=== PATIENT | male | born 1960 | race Caucasian/White ===

== ENCOUNTER 2016-12-11 21:34 | Inpatient (IN) ==
[2016-12-11] MEDS ORDERED: LEVOFLOXACIN INJ 750 MG in PREMIX 1 EACH IV STA (22:07)
[2016-12-11] MEDS ORDERED: ALBUTEROL/IPRATROPIUM 3 ML NEB RESP TX STA (22:07)
--- NOTE | 2016-12-11 22:12 | Emergency Department Note ---
Arrival - Arrival Chief Complaint: Non-Specific Stated Complaint: kidney stone ED Nursing Triage Note: pt transferred from [place] [facility] er with pneumonia, kidney stone, possible appendicitis. pt states he is in no pain at present d/t [place] [facility] giving pain med. Mode of Arrival: Stretcher Limitations: No Limitations Source: Patient Time Seen by Provider: 12/11/16 22:04 - History of Present Illness HPI Narrative: This 56-year-old white male presents on referral from [facility] for further evaluation of right renal stone disease, alleged pneumonia, and alleged appendicitis. Patient most significantly has had complaints of persistent cough and dyspnea on exertion for the last several days with specific complaints today of right flank pain radiating anteriorly with nausea and vomiting precipitating his initial visit to [facility]. Notable was evidence on noncontrast CT of abnormalities the appendix for which the patient was referred here for further evaluation. Currently the patient is comfortable without complaints of pain at the moment. Onset (ago): day(s) (Patient presents several days post onset of symptoms) Allergies/Adverse Reactions: Allergies Allergy/AdvReac Type Severity Reaction Status Date / Time Penicillins Allergy ANAPHYLAXIS Verified 12/11/16 22:05 Review of System - Review of System 12 point system: reviewed and no additional remarkable complaints except as stated - Review of System Constitutional: Present: as per HPI Respiratory: Present: as per HPI Genitourinary male: Present: as per HPI Medical,Surgical,& Family Hx - Medical History Respiratory: History of: Pneumonia Genitourinary: History of: Kidney Stones - Social History Smoking Status: Unknown if ever smoked Frequency of Alcohol Use: None Type of Drug Use: None Exam Physical Examination: GENERAL: Well developed, well nourished white male in no acute distress. HEENT: Normocephalic. No trauma. Moist mucous membranes. EOMI. PERRLA. ENT NML NECK: Supple. No adenopathy. CARDIAC: Regular. No murmurs. Heart rate 75 CHEST: Scattered expiratory moi. No respiratory distress. O2 sat 94% ABDOMEN: Soft. Right lower quadrant tenderness. Active bowel sounds. EXTREMITIES: No trauma. Normal ROM. No pedal edema. SKIN: No diaphoresis. No rash. NEURO: Alert. Neuro intact. No focal deficits. Vital Signs: Vital Signs Temperature 98.3 F 12/11/16 22:53 Pulse Rate 75 12/11/16 22:53 Respiratory Rate 18 12/11/16 22:53 Blood Pressure 146/86 12/11/16 22:53 O2 Sat by Pulse Oximetry 100 12/11/16 22:49 Course Course Narrative: I discussed the CT from [facility] with our radiologist who felt there was no evidence of an acute appendicitis. Likewise he obtained the official interpretation by the radiologist at [facility] who concurred with this opinion that there was no evidence of acute appendicitis. - Reevaluation(s) Reevaluation #1: Advised patient of admission for pneumonia and renal stone and the fact that he has no appendicitis. - Consultations Consultation #1: Discussed with hospitalist service who will admit for further evaluation treatment peer Results - Labs CBC & BMP: 12/11/16 22:17 12/11/16 22:17 Labs: Lab per [facility] white blood count 22,000, hematocrit 37, sodium 144, potassium 4.2, BUN 17, creatinine 1.0 I have noted the similar laboratory findings from our lab. - Diagnostic Findings Procedure: Chest x-ray: image reviewed by me, report reviewed by me (Per [facility] right middle lobe pneumonia), CT Abdomen and Pelvis: image reviewed by me, report reviewed by me (Per [facility] right renal stone/abnormal appearing appendix) Disposition Clinical Impression: Right middle lobe pneumonia, Right renal stone Case discussed with: patient, patient's family Disposition: Still a Patient Condition: Stable Time of Disposition: 23:16
[2016-12-11] MEDS ORDERED: LEVOFLOXACIN INJ 150 ML IV ONE (22:16)
[2016-12-11 22:57] LABS: Calcium 7.9 MG/DL (8.5-10.1); Osmolality,Calculated 282.3 MOS/KG (273-304); Potassium 4.1 MMOL/L (3.5-5.1)
--- NOTE | 2016-12-11 23:00 | XRay Report ---
History: Pneumonia Date: 12/11/2016 Study: Chest x-ray PA and lateral Comparison exam: No previous chest x-ray available The cardiac silhouette is upper normal in size. There is no obvious mediastinal mass. The pulmonary vasculature is not engorged. There is atelectatic parenchymal consolidation in the right middle lobe compatible with pneumonia. The lungs and pleural spaces are otherwise clear. There is mild thoracic spondylosis. Impression: Right middle lobe pneumonia PROCEDURE INTERPRETED AT [facility] Final Report Signed by: Dr. Katherine Soliz
[2016-12-11 23:02] LABS: Troponin I Only < 0.015 NG/ML (0.00-0.045)
[2016-12-11 23:04] LABS: Basophils % 0.2 % (0.0-0.8); Eosinophils # 0.2 10*3/uL (0.0-0.87); Eosinophils % 0.9 % (0.00-10.9); Hematocrit 34.8 VOL% (42.0-52.0); Hemoglobin 11.4 GM/DL (14.0-18.0); Immature Granulocytes % 0.8 %; Immature Granulocytes Absolute 0.15 #; Mean Corpuscular HGB Conc 32.8 GM/DL (32-36); Mean Corpuscular Hemoglobin 31 PG (27-34); Mean Platelet Volume 9.2 FL (9.6-12.0); Monocytes # 1.1 10*3/uL (0.11-0.8); Monocytes % 5.6 % (1.7-12.7); Neutrophils # 15.3 10*3/uL (1.4-7.4); Neutrophils % 77.5 % (38.7-73.9); Platelet Count 411 T/CUMM (130-400); Red Blood Count 3.74 MC/CUMM (3.8-5.5); Red Cell Distribution Width 13.1 % (9.3-17.3); White Blood Count 19.8 T/CUMM (4-12)
--- NOTE | 2016-12-11 23:27 | EKG Report ---
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
--- NOTE | 2016-12-11 23:59 | Hospitalist History & Physical ---
Assessment and Plan (1) Right middle lobe pneumonia Status: Acute Current Visit: Yes (2) Kidney stone Status: Acute Current Visit: Yes (3) Restless leg syndrome Status: Acute Current Visit: Yes (4) Tobacco abuse Status: Acute Assessment and plan: Patient will be admitted to our service he will be placed on IV antibiotics and schedule breathing treatments. Patient does have some evidence of a kidney stone over per CT scan. We will consult urology. Instructed the patient that the need to quit smoking. I am getting schedule him a nicotine patch. Reevaluate patient in the morning and adjust plans appropriate Current Visit: Yes History of Present Illness Chief complaint: Transfer from outside facility History of present illness: Mr. Aege is a 56 year old male with past medical history significant for restless leg syndrome who was received as a transfer from [place] emergency room. Patient developed right lower quadrant pain seem like it radiated to his right side this occurred a few days ago. The pain steadily increased. They went up to quit in hospital was given a Toradol shot. Patient had a CT scan displayed a 3 mm stone noted in the right UVJ with some moderate right sided hydronephrosis. He had a significant right middle lobe consolidation. Patient reports a recent upper respiratory infection productive cough denies fever. We accept the patient is transferred to the emergency room I was consulted to admit the patient through the emergency room Allergies Allergy/AdvReac Type Severity Reaction Status Date / Time Penicillins Allergy ANAPHYLAXIS Verified 12/11/16 22:05 Medical,Surgical,& Family Hx - Medical History Respiratory: History of: Pneumonia Genitourinary: History of: Kidney Stones - Surgical History Surgical History: noncontributory (none) - Family History Family History: Reports;: Family Heart Disease, Family Stroke - Social History Smoking Status: Current every day smoker Frequency of Alcohol Use: None Type of Drug Use: None 12 point system: reviewed and no additional remarkable complaints except as stated Exam - Constitutional Vitals: Period Temp Pulse Resp BP Sys/Kim Pulse Ox Last 24 Hr 98.3 F-98.3 F 63-75 12-18 146-146/86-86 94-100 General appearance: normal weight - Head Head exam: Present: normal inspection - Eye Eye exam: Present: EOMI Pupils: Present: GARY - ENT ENT exam: Present: normal exam - Neck Neck exam: Present: normal inspection - Respiratory Respiratory exam: Present: rhonchi (Appreciated in the basis) - Cardiovascular Cardiovascular exam: Present: regular rate and rhythm - GI/Abdominal GI/Abdominal exam: Present: normal bowel sounds - Extremities Exam Extremities exam: Present: normal inspection - Back Exam Back exam: Present: normal inspection - Neurological Exam Neurological exam: Present: alert - Psychiatric Psychiatric exam: Present: normal affect, normal mood Results - Labs CBC & BMP: 12/11/16 22:17 12/11/16 22:17
[2016-12-12] MEDS ORDERED: MORPHINE 2 MG/1 ML SYRINGE IV PRN (00:03)
[2016-12-12] MEDS ORDERED: ALBUTEROL 2.5 MG/3 ML NEB RESP TX PRN (00:03)
[2016-12-12] MEDS ORDERED: ONDANSETRON 4 MG/2 ML VIAL IV PRN (00:03)
[2016-12-12] MEDS: NICOTINE 21 MG/24 HR PATCH TRANSDERM SCH ×2 (02:08→09:16)
[2016-12-12] MEDS: ENOXAPARIN 40 MG/0.4 ML SYRINGE SUBCUT SCH (02:09)
[2016-12-12] MEDS: clonazePAM 0.5 MG TABLET PO SCH ×2 (02:10→21:38)
[2016-12-12] MEDS: ALBUTEROL/IPRATROPIUM 3 ML NEB RESP TX SCH ×4 (02:13→19:19)
[2016-12-12 07:37] LABS: Basophils % 0.2 % (0.0-0.8); Eosinophils # 0.1 10*3/uL (0.0-0.87); Eosinophils % 0.9 % (0.00-10.9); Hematocrit 32.5 VOL% (42.0-52.0); Hemoglobin 10.7 GM/DL (14.0-18.0); Immature Granulocytes % 0.6 %; Immature Granulocytes Absolute 0.09 #; Lymphocytes # 2.2 10*3/uL (1.4-4.0); Lymphocytes % 15.5 % (21.2-54.2); Mean Corpuscular HGB Conc 32.9 GM/DL (32-36); Mean Corpuscular Hemoglobin 31 PG (27-34); Mean Corpuscular Volume 92.6 FL (87-102); Mean Platelet Volume 9.4 FL (9.6-12.0); Monocytes # 0.9 10*3/uL (0.11-0.8); Monocytes % 6.2 % (1.7-12.7); Neutrophils # 10.6 10*3/uL (1.4-7.4); Neutrophils % 76.6 % (38.7-73.9); Platelet Count 377 T/CUMM (130-400); Red Blood Count 3.51 MC/CUMM (3.8-5.5); Red Cell Distribution Width 13.1 % (9.3-17.3); White Blood Count 13.9 T/CUMM (4-12)
[2016-12-12 08:05] LABS: Albumin 2.8 G/DL (3.4-5.0); Bilirubin,Total 0.5 MG/DL (0.2-1.0); Calcium 8.2 MG/DL (8.5-10.1); Osmolality,Calculated 283.1 MOS/KG (273-304); Potassium 3.8 MMOL/L (3.5-5.1); Total Protein 6.4 G/DL (6.4-8.3)
--- NOTE | 2016-12-12 09:15 | Hospitalist Progress Note ---
Assessment and Plan (1) Right middle lobe pneumonia Status: Acute Assessment and plan: I subtraction to the levofloxacin. Obtain sputum for Gram stain and culture. And is a smoker. This consultation should be followed very closely just on the fear that he may be malignant disease. Current Visit: Yes Qualifiers: Pneumonia type: due to unspecified organism Qualified Code(s): J18.1 - Lobar pneumonia, unspecified organism (2) Kidney stone Status: Acute Assessment and plan: Patient will need to seave the urine. If we collect the stone send it to the laboratory for chemistry analysis. Tells me in the past has been a calcium based stones. If his calcium phosphate then we know his hypercalcemia which he suspects because he drinks a lot of milk. Calcium oxalate may engendered GI diseases suspicion of chronic inflammatory bowel disease. Patient is on pain medications which seem to be optimal at this point. Current Visit: Yes (3) Restless leg syndrome Status: Acute Assessment and plan: Observe if it becomes too much of an issue put the patient on Requip. Current Visit: Yes (4) Tobacco abuse Status: Acute Current Visit: Yes Hospitalist: Subjective Interval history: Patient has been seen interviewed and examined and prepped and chart has been reviewed. Artis was transferred from [facility] with a right-sided moderate hydronephrosis complicating a kidney stone as well as right middle lobe pneumonia. Also been having a lot of right flank pain. His urinalysis was done at [facility] which I do not seem to find on the record. Will repeat a UA and urine culture here. He has yet to pass the stone. There is no gross hematuria. Regarding the pneumonia is yet to give me a sputum. He has received a dose of levofloxacin already. His description of the pneumonia seems to be more and more typical because there is no too much expectoration. He is a socked in consolidation. Chest x-ray review. I will be sending an appropriate laboratory work for this. We may need to add ceftriaxone to the levofloxacin. Exam - Constitutional Vitals: Period Temp Pulse Resp BP Sys/Kim Pulse Ox Last 24 Hr 97.5 F-98.6 F 74-92 16-17 130-161/68-94 94-99 General appearance: normal weight - Head Head exam: Present: normocephalic, atraumatic - Eye Eye exam: Present: EOMI, other (Anicteric sclera no conjunctival petechia) Pupils: Present: GARY - ENT ENT exam: Present: normal oropharynx - Neck Neck exam: Present: normal inspection - Respiratory Respiratory exam: Present: other (Right-sided bronchopulmonary noted no wheezing no rales rhonchi) - Cardiovascular Cardiovascular exam: Present: regular rate and rhythm - GI/Abdominal GI/Abdominal exam: Present: normal bowel sounds, soft - Extremities Exam Extremities exam: Present: full ROM - Back Exam Back exam: Present: normal inspection - Neurological Exam Neurological exam: Present: alert, oriented X3, CN II-XII intact - Psychiatric Psychiatric exam: Present: normal affect, normal mood - Skin Skin exam: Present: normal color, warm, dry Results - Labs CBC & BMP: 12/12/16 06:40 12/12/16 06:40 Lab Results: I have reviewed the past 24 hour labs
[2016-12-12] MEDS: GABAPENTIN 600 MG TABLET PO SCH ×3 (09:16→21:37)
[2016-12-12] MEDS: PANTOPRAZOLE 40 MG TABLET PO SCH (09:16)
[2016-12-12] MEDS: DEXTROSE 5% NACL 0.45% 1,000 ML IV SCH ×2 (09:25→21:35)
[2016-12-12] MEDS: LEVOFLOXACIN INJ 750 MG in PREMIX 1 EACH IV SCH (21:40)
[2016-12-12 21:44] LABS: Apearance,Urine CLEAR (Clear); Bilirubin,Urine Negative (Negative); Blood, Urine Large mg/dL (Negative); Glucose,Urine (UA) 50 mg/dL (Negative); Hyaline Casts,Urine 1 /LPF (0-3); Ketones,Urine Negative (Negative); Nitrite,Urine Negative (Negative); Protein,Urine Negative; RBC,Urine <1 /HPF (0-4); Urine Color Straw (Yellow); Urine Specific Gravity 1.004 (1.001-1.035); Urine Urobilinogen < 2.0 EU/DL (0.2-1.0); WBC,Urine <1 /HPF (0-6)
[2016-12-12] MEDS ORDERED: LEVOFLOXACIN INJ 750 MG in PREMIX 1 EACH IV SCH (22:00)
[2016-12-13] MEDS: ENOXAPARIN 40 MG/0.4 ML SYRINGE SUBCUT SCH (01:06)
[2016-12-13] MEDS: ALBUTEROL/IPRATROPIUM 3 ML NEB RESP TX SCH ×4 (01:54→19:10)
[2016-12-13] MEDS: NICOTINE 21 MG/24 HR PATCH TRANSDERM SCH (09:00)
[2016-12-13] MEDS: PANTOPRAZOLE 40 MG TABLET PO SCH (09:00)
[2016-12-13] MEDS: GABAPENTIN 600 MG TABLET PO SCH ×3 (09:00→20:33)
--- NOTE | 2016-12-13 09:50 | Consultation ---
DATE OF CONSULT: 12/12/2016 Mr. Agee is a 56-year-old white male admitted to hospitalist service here at [facility] be cause of pneumonia of right lung and right ureteral stone. Apparently, the emergency room doctor in [place], [place] felt that he may also have appendicitis as an appendicolith was noted on the C T scan. There is no evidence that he has clinical appendicitis, however. The patient started hurti ng from the right ureteral stone on Wednesday three days ago. He went to the emergency room in [facility] and received shot and oral medication. Pain worsened in the last night about 9 o'clock went to the emergency room [place] again where he was again seen and got relief of the colicky pain that he had, but was also found to have pneumonia of the right middle lobe on CT scan. Also had an appendic olith without evidence of appendicitis. The stone that he has it is mild stone at the right uretero vesical junction. It is only about 3 mm in size and has a maximum chance to pass. The patient is h aving only mild pain from stone now. He is afebrile. He is not that symptomatic from the pneumonia . The pain that he has is actually being relieved by [place] in recent past since he got initial pain relief earlier last night. The patient has had two previous stones. One was about 10 years ago necessitating lot of medication , but he passed one about two years ago that did not require him going to the doctor. He has not re quired any intervention and the stone that he has now should have passed. The patient should be followed by his family physician, Dr. Montague, as his stone should pass in michelle arthur fashion. Urology can be reconsulted as necessary, but I do not feel we need to do anything othe r than giving pain medication until he can pass the stone. Prognosis is excellent.
[2016-12-13] MEDS: DEXTROSE 5% NACL 0.45% 1,000 ML IV SCH ×2 (13:00→17:28)
--- NOTE | 2016-12-13 13:28 | Hospitalist Progress Note ---
Assessment and Plan (1) Right middle lobe pneumonia Status: Acute Assessment and plan: Continue levofloxacin 750 mg daily. Check sputum for Gram stain and culture; specimen in the lab. And is a smoker. This consultation should be followed very closely just on the fear that he may be malignant disease. Current Visit: Yes Qualifiers: Pneumonia type: due to unspecified organism Qualified Code(s): J18.1 - Lobar pneumonia, unspecified organism (2) Kidney stone Status: Acute Assessment and plan: Patient will need to seave the urine. If we collect the stone send it to the laboratory for chemistry analysis. Tells me in the past has been a calcium based stones. If his calcium phosphate then we know his hypercalcemia which he suspects because he drinks a lot of milk. Calcium oxalate may engendered GI diseases suspicion of chronic inflammatory bowel disease. Patient is on pain medications which seem to be optimal at this point. Current Visit: Yes (3) Restless leg syndrome Status: Acute Assessment and plan: Observe if it becomes too much of an issue put the patient on Requip. Current Visit: Yes (4) Tobacco abuse Status: Acute Current Visit: Yes Hospitalist: Subjective Interval history: Patient has been seen interviewed and examined and chart has been reviewed.Admitted yesterday with right flank pain patient was found to the right middle lobe pneumonia. He has a kidney stone on the right ureter at the UV junction. Denies chills pain in the right flank is less and management is optimal currently on antibiotics for the pneumonia. Using levofloxacin 750 mg daily Exam - Constitutional Vitals: Period Temp Pulse Resp BP Sys/Kim Pulse Ox Last 24 Hr 96.9 F-98.7 F 62-89 16-20 130-152/64-89 94-99 General appearance: normal weight - Head Head exam: Present: normocephalic, atraumatic - Eye Eye exam: Present: EOMI Pupils: Present: GARY - Neck Neck exam: Present: normal inspection - Respiratory Respiratory exam: Present: clear to auscultation bilaterally - Cardiovascular Cardiovascular exam: Present: regular rate and rhythm - GI/Abdominal GI/Abdominal exam: Present: normal bowel sounds, soft, other (Note as tender to palpation today) - Extremities Exam Extremities exam: Present: full ROM - Neurological Exam Neurological exam: Present: alert, oriented X3, CN II-XII intact - Psychiatric Psychiatric exam: Present: normal affect, normal mood - Skin Skin exam: Present: normal color, warm, dry Results - Labs CBC & BMP: 12/12/16 06:40 12/12/16 06:40 Lab Results: I have reviewed the past 24 hour labs
[2016-12-13] MEDS: clonazePAM 0.5 MG TABLET PO SCH (21:34)
[2016-12-13] MEDS: LEVOFLOXACIN INJ 750 MG in PREMIX 1 EACH IV SCH (21:35)
[2016-12-14] MEDS: ENOXAPARIN 40 MG/0.4 ML SYRINGE SUBCUT SCH (00:13)
[2016-12-14] MEDS: ALBUTEROL/IPRATROPIUM 3 ML NEB RESP TX SCH ×3 (00:40→12:50)
[2016-12-14] MEDS: DEXTROSE 5% NACL 0.45% 1,000 ML IV SCH ×2 (03:08→11:22)
[2016-12-14] MEDS: GABAPENTIN 600 MG TABLET PO SCH ×2 (08:34→14:06)
[2016-12-14] MEDS: PANTOPRAZOLE 40 MG TABLET PO SCH (08:34)
[2016-12-14] MEDS: NICOTINE 21 MG/24 HR PATCH TRANSDERM SCH (08:34)
--- NOTE | 2016-12-14 14:19 | Discharge Summary ---
Diagnosis - Discharge Diagnosis (1) Right middle lobe pneumonia Status: Acute (2) Kidney stone Status: Acute (3) Restless leg syndrome Status: Acute (4) Tobacco abuse Status: Acute Discharge Plan - Discharge Data Disposition: Disch To Home/Self Care Condition at Discharge: Stable Discharge Diet: advance to your usual diet Activity: resume usual activities as tolerated Hygiene: no restrictions Weight Bearing at Discharge: full weight bearing Driving: no restrictions Contact your physician if you experience:: fever over 101 - Discharge Medications New Levofloxacin Tab [Levaquin Tab] 750 mg PO DAILY #7 tablet Pantoprazole Tab [Protonix Tab] 40 mg PO DAILY #30 tablet Nicotine 21 mg/24 Hr Patch [Nicoderm CQ 21 mg/24 hr Patch] 1 patch TRANSDERM DAILY #14 patch Continue Tadalafil [Cialis] 10 mg PO QOTHER DAY PRN MDD 10 PRN Reason: Erectile Dysfunction clonazePAM [Clonazepam] 1 mg PO BEDTIME Hydrocodone/Acetaminophen [[place] 10-325 Tablet] 1 each PO Q6HR PRN #30 PRN Reason: Pain Gabapentin 600 mg PO TID - Follow Up or Referral - Forms/Instructions Instructions: Kidney Stones (DC), Community-acquired Pneumonia (DC) Exam - Constitutional Vitals: Period Temp Pulse Resp BP Sys/Kim Pulse Ox Last 24 Hr 98 F-99.0 F 70-99 14-20 128-165/69-96 95-99 General appearance: normal weight - Head Head exam: Present: normocephalic, atraumatic - Eye Eye exam: Present: EOMI Pupils: Present: GARY - ENT ENT exam: Present: normal exam - Neck Neck exam: Present: normal inspection - Respiratory Respiratory exam: Present: clear to auscultation bilaterally - Cardiovascular Cardiovascular exam: Present: regular rate and rhythm - GI/Abdominal GI/Abdominal exam: Present: normal bowel sounds, soft - Extremities Exam Extremities exam: Present: full ROM - Back Exam Back exam: Present: normal inspection - Neurological Exam Neurological exam: Present: alert, oriented X3, CN II-XII intact - Psychiatric Psychiatric exam: Present: normal affect, normal mood - Skin Skin exam: Present: normal color, warm, dry Discharge Results Procedures and tests throughout hospitalization: Pending Orders 12/12/16 06:40 Mycoplasma pneumo Abs IgG,IgM Routine 12/12/16 09:11 Sputum Culture and Gram Stain Routine DS: Provider Date of admission: 12/11/16 23:11 Primary care physician: . No PCP Attending physician on admission: Jayden Moran MD Consults: 12/12/16 00:03 Consult to Physician [CONS] Routine Comment: kidney stone Consulting Provider: Brian Sotomayor Consult to Specialist Group: Urology When should Consulting Provider be notified: In am Person Notified: Oliva Date Notified: 12/14/16 Time Notified: 09:14 Consult Notification Comment: Discharging clinician: Jayden Moran MD
[2016-12-14 15:29] VITALS: BP 149/81
[2016-12-15] MEDS ORDERED: LEVOFLOXACIN 750 MG TABLET PO SCH (09:00)
[2016-12-16 12:31] LABS: Mycoplasma pneumoniae Ab, IgG 1.91 index (<=0.90); Mycoplasma pneumoniae Ab, IgM 0.36 index (<=0.90)
== END 2016-12-14 16:19 | disposition home or self-care (01) | DRG 693 ==
LOC: EDUNIT# → EDBD → N.ED 21:34 → N.EDINP 23:11 → N.5E 23:44
PROVIDERS: ADMIT Internal Medicine Infectious Disease; ATTEND Internal Medicine Infectious Disease